=== PATIENT | male | born 1950 | race Caucasian/White ===

== ENCOUNTER 2019-01-16 10:15 | Outpatient (CLI) | payer MEDICARE ==
[~2019-01-16] VITALS: Ht 180.3 cm; Wt 92.5 kg
[~2019-01-16 10:15] MED LIST: ACTOS PLUS; ACTOS PLUS MET; ACTOS15 MG; ASP325T; CLPD75T; CRS350T PO; FENO145T; GLBR5T; HYDR-3720 PO; HYDR1TAB PO; HYZAAR; KCL10CCR; LOSA1TAB15; LSNP10T; MELO7.5T; METR500T PO; MTR500T; NF-ESOM40C; OXYCODONE; PGLT30T; PRD20T PO; RABE20TA; SIMV40TA2; SIMV80TA3; SITA1TAB2; SITA25TA; SMV20T; SULF1TAB38 PO; [UNRECOGNIZED DRUG - OTHER]
[2019-01-16] MEDS ORDERED: GLYB5TAB6 PO (10:28)
[2019-01-16] MEDS ORDERED: LISI-552 PO (10:28)
[2019-01-16] MEDS ORDERED: METF-399 PO (10:28)
[2019-01-16] MEDS ORDERED: MULT-1056 PO (10:28)
[2019-01-16] MEDS ORDERED: INSU100I14 SQ (10:28)
[2019-01-16] MEDS ORDERED: VITA1CAP19 PO (10:28)
[2019-01-16] MEDS ORDERED: INSU100I10 SQ (10:28)
[2019-01-16] MEDS ORDERED: CHOL200059 PO (10:28)
[2019-01-16] MEDS ORDERED: PANT40TA3 PO (10:28)
[2019-01-16] MEDS ORDERED: SIMV40TA4 PO (10:28)
== END 2019-01-16 12:34 | disposition home or self-care (01) ==
LOC: PREOP 10:15
PROVIDERS: ATTEND Surgery
DX: Z01.818 Encounter for other preprocedural examination (principal)

== ENCOUNTER → 2019-01-18 | Day surgery (SDC) | payer OTHER, MEDICARE ==
[~2019-01-18] VITALS: Ht 180.3 cm; Wt 92.5 kg
[~2019-01-18] MED LIST changes: +ACETAMINOPHEN 325 MG TABLET PO PRN; +CHOL200059 PO; +GLYB5TAB6 PO; +HYDROcodone/APAP 5 MG/325 MG (LORTAB) TAB PO PRN; +INSU100I10 SQ; +INSU100I14 SQ; +KETAMINE HCL 100 MG/ML 5 ML VIAL ONE; +LACTATED RINGERS 1,000 ML IV ONE; +LACTATED RINGERS 1,000 ML IV STA; +LIDOCAINE 1% INJ 20 ML 20 ML VIAL INJ ONE; +LIDOCAINE 1% INJ 20 ML 20 ML VIAL ONE; +LIDOCAINE JELLY 2% 6 ML SYRINGE MM PRN; +LIDOCAINE JELLY 2% 6 ML SYRINGE ONE; +LISI-552 PO; +METF-399 PO; +MIDAZOLAM 2 MG/2 ML (VERSED) VIAL ONE; +MULT-1056 PO; +ONDANSETRON 4 MG/2 ML (SDV) Z0FRAN IV PRN; +PANT40TA3 PO; +SIMV40TA4 PO; +VITA1CAP19 PO; +morphine INJ 10 MG/ML 1ML (SYR OR VIAL) IV PRN; +proPOfol 200 MG/20 ML (DIPRIVAN) VIAL IV ONE
--- NOTE | 2019-01-18 12:11 | Progress Note-Pre Operative ---
Pre-Operative Progress Note H&P Reviewed The H&P was reviewed, patient examined and no changes noted. Date Seen by Provider: Jan 18, 2019 Time Seen by Provider: 11:30 Date H&P Reviewed: Jan 18, 2019 Time H&P Reviewed: 11:30 Pre-Operative Diagnosis: hx colon polyp, sx sebaceous cyst perineum x3 CARLOS JOHNSON MD Jan 18, 2019 12:11
--- NOTE | 2019-01-18 12:11 | Conscious Sedation/ASA ---
Conscious Sedation Pre-Proced Time 11:30 ASA Score 2 For ASA 3 and 4: Consider anesthesia and medical clearance. Also, for patients with a history of failed moderate sedation consider anesthesia. Airway Lungs Heart ASA score ASA 1: a normal healthy patient ASA 2: a patient with a mild systemic disease (mid diabetes, controlled hypertension, obesity ASA 3: a patient with a severe systemic disease that limits activity (angina , COPD, prior Myocardial infarction) ASA 4: a patient with an incapacitating disease that is a constant threat to life (CHF, renal failure) ASA 5: a moribund patient not expected to survive 24 hrs. (ruptured aneurysm) ASA 6: a declared brain- patient whose organs are being harvested. For emergent operations, add the letter E after the classification Mallampati Classification Grade 2 Sedation Plan Analgesia, Amnesia, Plan communicated to team members, Discussed options with patient/fam, Discussed risks with patient/fam The patient is an appropriate candidate to undergo the planned procedure, sedation, and anesthesia. The patient immediately re-assessed prior to indication. CARLOS JOHNSON MD Jan 18, 2019 12:11
--- NOTE | 2019-01-18 12:14 | Discharge Inst-Surgical ---
D/C Lap Instructions-ALEX Follow Up Appt in 2 weeks Activity as tolerated keep perineum clean/dry with gauze BID and PRN High Fiber Diet 25g or more per day Avoid Alcohol, Caffeine, Spicy [place] and Acid foods. Drink 64 fluid oz or more of fluids per day. Symptoms to Report: Fever over 101 degree F, Nausea/Vomiting If any problems/questions: Contact your physician or go to Emergency Room CARLOS JOHNSON MD Jan 18, 2019 12:14
[2019-01-18 13:00] VITALS: BP 138/65
[2019-01-18 13:16] VITALS: BP 132/81
[2019-01-18 13:30] VITALS: BP 138/64
[2019-01-18 14:15] VITALS: BP 124/80
--- NOTE | 2019-01-18 14:27 | Anesthesia-General Post-Op ---
MAC Patient Condition Mental Status/LOC: Same as Preop Cardiovascular: Satisfactory Nausea/Vomiting: Absent Respiratory: Satisfactory Pain: Controlled Complications: Absent Post Op Complications Complications None Follow Up Care/Instructions Patient Instructions None needed. Anesthesiology Discharge Order Discharge Order Patient is doing well, no complaints, stable vital signs, no apparent adverse anesthesia problems. RUPAL HOGAN DO Jan 18, 2019 14:27
[2019-01-18 14:50] VITALS: BP 125/81
[2019-01-18 15:04] VITALS: BP 125/81
--- NOTE | 2019-01-18 15:18 | Progress Note-Post Operative ---
Post-Operative Progess Note Surgeon (s)/E Learning Specialist (s) Surgeon CARLOS JOHNSON MD E Learning Specialist: none Pre-Operative Diagnosis hx colon polyp, sx sebaceous cyst perineum x3 Post-Operative Diagnosis same Procedure & Operative Findings Date of Procedure 01/18/19 Procedure Performed/Findings Colonoscopy with bx. excision left buttock lesion(1.5cm), perinal lesion x2(1cm). Anesthesia Type MAC with local Estimated Blood Loss Estimated blood loss (mL): minimal Specimens/Packing Specimens Removed colon polyp CARLOS JOHNSON MD Jan 18, 2019 15:18
--- NOTE | 2019-01-19 01:02 | OPERATIVE REPORT ---
DATE OF SERVICE: 01/18/2019 ATTENDING PRIMARY STORAGE GARAGE MANAGER: Carolyn Rashid APRN PREOPERATIVE DIAGNOSES: History of colon polyp, symptomatic sebaceous cysts of the perineum x2 as well as the left buttock x1. POSTOPERATIVE DIAGNOSES: Mild chronic stage II external and internal hemorrhoids, small hyperplastic polyp of the descending colon, mild colitis of the cecum. PROCEDURE: Colonoscopy with biopsy. Excision of sebaceous cysts, left buttock 1.5 cm in size, perineum x2, both 1 cm in size. DISPOSITION: The patient tolerated the procedure well. INDICATIONS: The patient is a 68-year-old male in need of a followup colonoscopy. In 2014, he was found to have diverticulosis as well as hemorrhoids as well as a polyp of the proximal ascending colon and the sigmoid colon, which came back as tubular adenomas. He reports a colonoscopy prior to this also identified benign polyps. He reports that he is otherwise asymptomatic, does not report any diarrhea nor constipation as well as no red blood per rectum nor any dark tarry stools. He does have symptomatic sebaceous cysts, one of the left buttock as well as the bilateral perineal region, which have grown larger in size and will drain a white thick material as well as painful. He has had several of these removed in the past. DESCRIPTION OF PROCEDURE: The patient was brought to the endoscopy suite, laid in the left lateral decubitus position. After adequate IV pain and sedative medications and monitored anesthesia care, a digital rectal examination was performed. Mild chronic stage II external and internal hemorrhoids were identified, which were not actively edematous nor inflamed and no bleeding. Normal sphincter tone was felt and there were no palpable masses. Prostate gland was palpable and appeared normal. The endoscope was then intubated to the anus and rectum gently insufflated. The endoscope was then advanced to the [facility] in the rectum with no polyps or any neoplasms identified. We then proceeded through the sigmoid colon where very mild or early diverticulosis identified. At the descending colon, a small hyperplastic polyp approximately 2 mm in size was identified. This was biopsied and destroyed using forceps and cautery with visualization of good hemostasis. The endoscope was then advanced to the transverse colon and to the ascending colon to the cecum. At the level of cecum, a mild colitis encompassing the majority of the cecum was identified. Biopsies were taken of this region with forceps with visualization of good hemostasis. The endoscope was then slowly withdrawn while taking a second look and suctioning of residual air with no additional findings. The patient tolerated the procedure well. We will await the biopsy results. It does appear that he does have some form of colitis; however, unsure of the etiology and we will await the biopsy results. If he does become symptomatic, he may warrant further investigation as well as medical treatment modalities. We will also await the biopsy results of the polyp and if there is no villous adenoma identified, he may wait 10 years for his next colonoscopy. Under the same anesthesia, we then proceeded with excision of the symptomatic sebaceous cyst. In the left lateral decubitus position, we first proceeded with excision of the left buttock sebaceous cyst. A 1% lidocaine was used to anesthetize the overlying skin as well as the subcutaneous tissue. The skin incision was made using a 15 blade and the cyst identified and completely excised using a 15 blade. Good hemostasis was observed with direct pressure and the skin edges were approximated using 3-0 nylon interrupted sutures. The patient was then placed in a supine position and frog legged. The bilateral perineal cysts were anesthetized. These were approximately 1 cm in size. A 1% lidocaine was used to anesthetize the lesions. The lesions were excised in a similar manner encompassing the entire cyst capsule using a 15 blade. The skin edges were then reapproximated loosely using 3-0 nylon interrupted sutures. Wounds were then cleaned with a sterile gauze. The patient tolerated the procedure well. We will have him follow up in the office approximately two weeks to evaluate the wounds as well as to remove the sutures. Job ID: [id number] DocumentID: [id number] Dictated Date: 01/18/2019 14:19:26 Education Spec Date: 01/19/2019 01:02:05 Dictated By: CARLOS JOHNSON MD [facility]
== END | disposition home or self-care (01) ==
LOC: ENDO 11:35
PROVIDERS: ATTEND Surgery
DX: Z12.11 Encounter for screening for malignant neoplasm of colon (principal); D12.4 Benign neoplasm of descending colon; K52.9 Noninfective gastroenteritis and colitis, unspecified; K57.30 Diverticulosis of large intestine without perforation or abscess without bleeding; K64.1 Second degree hemorrhoids; L72.3 Sebaceous cyst; N94.89 Other specified conditions associated with female genital organs and menstrual cycle; E11.9 Type 2 diabetes mellitus without complications; I10 Essential (primary) hypertension; K21.9 Gastro-esophageal reflux disease without esophagitis; Z87.891 Personal history of nicotine dependence; Z79.4 Long term (current) use of insulin; Z79.899 Other long term (current) drug therapy
CPT/HCPCS: 82962; 88305

== ENCOUNTER → 2019-12-04 | Outpatient (CLI) | payer OTHER, MEDICARE ==
[~2019-12-04] MED LIST changes: -ACETAMINOPHEN 325 MG TABLET PO PRN; -HYDROcodone/APAP 5 MG/325 MG (LORTAB) TAB PO PRN; -KETAMINE HCL 100 MG/ML 5 ML VIAL ONE; -LACTATED RINGERS 1,000 ML IV ONE; -LACTATED RINGERS 1,000 ML IV STA; -LIDOCAINE 1% INJ 20 ML 20 ML VIAL INJ ONE; -LIDOCAINE 1% INJ 20 ML 20 ML VIAL ONE; -LIDOCAINE JELLY 2% 6 ML SYRINGE MM PRN; -LIDOCAINE JELLY 2% 6 ML SYRINGE ONE; -MIDAZOLAM 2 MG/2 ML (VERSED) VIAL ONE; -ONDANSETRON 4 MG/2 ML (SDV) Z0FRAN IV PRN; +SIMV40TA25 PO; -SIMV40TA4 PO; -morphine INJ 10 MG/ML 1ML (SYR OR VIAL) IV PRN; -proPOfol 200 MG/20 ML (DIPRIVAN) VIAL IV ONE
--- NOTE | 2019-12-04 12:21 | Diagnostic Imaging Report ---
INDICATION: Productive cough. FINDINGS: The lungs are clear. The heart size and vascularity are within normal limits. No effusion or pneumothorax. No failure pattern. IMPRESSION: No acute-appearing abnormality. Dictated by: Dictated on workstation # [id number]
== END ==
LOC: RAD 11:11
PROVIDERS: ATTEND Family Medicine
DX: R05 Cough (principal)
CPT/HCPCS: 71046

== ENCOUNTER 2021-12-30 05:36 | Outpatient (CLI) | payer MEDICARE ==
[~2021-12-30] VITALS: Ht 180.3 cm; Wt 89.0 kg
[~2021-12-30 05:36] MED LIST changes: +GLBR5T PO; -GLYB5TAB6 PO; -LISI-552 PO; +LISI20TA26 PO; -PANT40TA3 PO; +PANT40TA52 PO
[2021-12-30] MEDS ORDERED: EMPA25TA PO (13:20)
[2021-12-30] MEDS ORDERED: CHOL500049 PO (13:20)
[2021-12-30] MEDS ORDERED: ALOG25TA2 PO (13:20)
[2021-12-30] MEDS ORDERED: MONT-40 PO (13:21)
== END 2021-12-30 13:28 | disposition home or self-care (01) ==
LOC: PREOP 05:36
PROVIDERS: ATTEND Surgery
DX: Z01.818 Encounter for other preprocedural examination (principal)

== ENCOUNTER 2023-06-28 05:41 | Outpatient (CLI) | payer MEDICARE ==
[~2023-06-28] VITALS: Ht 180.3 cm; Wt 77.6 kg
[~2023-06-28 05:41] MED LIST changes: +ALOG25TA2 PO; +CHOL500049 PO; +EMPA25TA PO; +MONT-40 PO
[2023-06-30] MEDS ORDERED: ZINC50TA51 PO (12:24)
[2023-06-30] MEDS ORDERED: FLUT15.845 NS (12:24)
[2023-06-30] MEDS ORDERED: LISI20TA26 PO (12:24)
[2023-06-30] MEDS ORDERED: INSU100I10 SQ (12:24)
== END 2023-06-30 12:33 | disposition home or self-care (01) ==
LOC: PREOP 05:41
PROVIDERS: ATTEND Surgery
DX: Z01.818 Encounter for other preprocedural examination (principal)